=== PATIENT | female | born 1955 | race Caucasian/White ===

== ENCOUNTER 2020-03-29 11:03 | Inpatient (IN) | payer MEDICARE, BC ==
[~2020-03-29] VITALS: Ht 172.7 cm; Wt 77.1 kg
--- NOTE | 2020-03-29 11:07 | NUR ---
[id number], c/o left ankle pain s/p slipped and fall, 10/10 pain scale. On room air, breathing evenly and unlabored. connected to the monitor and pulse ox. kept comfortable, will continue to monitor accordingly.
[2020-03-29] MEDS ORDERED: HYDROCODONE/APAP 10/325MG 1 EA TABLET ONE (11:14)
--- NOTE | 2020-03-29 11:17 | NUR ---
ronna at bedside for x-ray
[2020-03-29] MEDS ORDERED: HYDROCODONE/APAP 10/325MG 1 EA TABLET PO ONE (11:30)
--- NOTE | 2020-03-29 12:00 | NUR ---
[facility]THO PAGED ITS RUPAL
--- NOTE | 2020-03-29 12:03 | NUR ---
MOVE SHEET SUBMITTED TO ADMITTING AND CALLED FOR MS BED WITH RO [id number]
--- NOTE | 2020-03-29 12:19 | NUR ---
EMT AT BEDSIDE FOR EKG
[2020-03-29] MEDS ORDERED: IV NS 0.9% 500 ML BAG IV ONE (12:30)
--- NOTE | 2020-03-29 12:32 | NUR ---
CALLED [facility] 2ND TIME.
--- NOTE | 2020-03-29 12:47 | NUR ---
ROOM ASSIGNMENT: 109 MED SURG
[2020-03-29 12:49] LABS: BASOPHILS % (AUTO) 0.3 % (0.0-2.0); EOSINOPHILS % (AUTO) 0.2 % (0.0-6.0); HEMATOCRIT 46 % (33-45); HEMOGLOBIN 15.4 g/dL (11.5-14.8); LYMPHOCYTES # (AUTO) 1.5 /CMM (0.8-4.8); LYMPHOCYTES % (AUTO) 15.8 % (20.0-44.0); MEAN CORPUSCULAR HGB CONC 33 g/dl (31.0-36.0); MEAN CORPUSCULAR VOLUME 91 fL (82-100); MONOCYTES # (AUTO) 0.6 /CMM (0.1-1.30); MONOCYTES % (AUTO) 6.2 % (2.0-12.0); NEUTROPHILS # (AUTO) 7.4 /CMM (1.8-8.9); NEUTROPHILS % (AUTO) 77.5 % (43.0-81.0); PLATELET COUNT (AUTO) 264 /CMM (150-450); WHITE BLOOD COUNT (AUTO) 9.5 K/uL (4.3-11.0)
[2020-03-29 12:57] LABS: CALCIUM, SERUM 9.2 mg/dL (8.5-10.1); CREATININE 1.2 mg/dL (0.6-1.3); POTASSIUM 3.4 mmol/L (3.5-5.1)
[2020-03-29] MEDS ORDERED: MAG HYDROX/AL HYDROX/SIMETH 30 ML UDC PO PRN (13:00)
[2020-03-29] MEDS ORDERED: ACETAMINOPHEN 325 MG TABLET PO PRN (13:00)
[2020-03-29] MEDS ORDERED: Z GUARD REMEDY 2 OZ OINT TP PRN (13:00)
[2020-03-29] MEDS ORDERED: MAGNESIUM HYDROXIDE 30 ML UDC PO PRN (13:00)
[2020-03-29] MEDS ORDERED: ESTR42.53 VG (13:13)
[2020-03-29] MEDS ORDERED: ESTR1PAT TP (13:13)
--- NOTE | 2020-03-29 14:35 | NUR ---
XRAY IMAGING SENT TO [facility]
--- NOTE | 2020-03-29 15:07 | NUR ---
Nick palmer in [facility] - 03/29/20 at 1507 by DOUG Patient discharged to home in stable condition. Written and verbal after care instructions given. Patient verbalizes understanding of instruction.
--- NOTE | 2020-03-29 15:07 | NUR ---
RECEIVED PT FROM ER IN [facility]. PT AWAKE, ALERT AND ORIENTED X 4, ON ROOM AIR, SATURATING WELL, RESPIRATIONS EVEN AND UNLABORED, NO SIGNS OF RESPIRATORY DISTRESS NOTED. IV SITE ON RIGHT AC G18 INTACT, PATENT, WITH SALINE LOCK IN PLACE. HEAD TO TOE ASSESSMENT COMPLETE, SKIN INTACT. LEFT FOOT WITH KELLY BANDAGE WRAPPED. PT REPORTS 10/10 PAIN IN HER LEFT LEG. PT STATES SHE CAME TO THE ER DUE TO A SLIP AND FALL DURING A HIKE. ALL BELONGINGS ACCOUNTED FOR. BED IN LOW POSITION, LOCKED, CALL LIGHT WITHIN REACH. INTRODUCED SELF TO PT AND DISCUSSED PLAN OF CARE.
--- NOTE | 2020-03-29 15:07 | NUR ---
wheeled patient via gurney accompanied by RN adn emt in no distress, RN at bedside to assume care.
[2020-03-29 16:00] VITALS: BP 121/56
[2020-03-29] MEDS: IV NS 0.9% 1,000 ML IV PRN (16:21)
[2020-03-29] MEDS: HYDROCODONE/APAP 5/325MG 1 EACH TABLET PO PRN ×2 (16:26→20:03)
[2020-03-29] MEDS: ONDANSETRON HCL/PF 4 MG/2 ML VIAL IVP PRN ×2 (16:26→23:07)
[2020-03-29] MEDS ORDERED: ESTRADIOL TD SCH (17:00)
--- NOTE | 2020-03-29 18:34 | NUR ---
PT REFUSED TO SIGN CONSENT FOR ANESTHESIA, BLOOD TRANSFUSION, CONSENT FOR SURGERY WILL ENDORSE TO NOC SHIFT NURSE
[2020-03-29] MEDS ORDERED: KETOROLAC TROMETHAMINE INJ 30 MG/ML VIAL IM PRN (19:30)
[2020-03-29 20:00] VITALS: BP 142/67
--- NOTE | 2020-03-29 20:15 | NUR ---
MS RN NOTES PT IS ANXIOUS ABOUT THE SURGERY FOR ORIF TOMORROW. SAYS DOESN'T KNOW WHO IS HER SURGEON IS AND WANTS DR DOUGHERTY TO OPERATE ON HER. PT EDUCATION DONE ABOUT THE SURGERY AND THE STAFF OPERATING ON HER BASED ON HER CHART. C/O OF 10/10 PAIN ON HER L ANKLE. PAIN CONTROLLING MEASURES IN PLACE WILL CONT TO MONITOR
[2020-03-29] MEDS: MORPHINE SULFATE INJ 2 MG/ML DISP.SYRIN IV PRN (23:08)
[2020-03-30] VITALS (7 sets, daily range): BP systolic 122–142; BP diastolic 65–74
[2020-03-30] MEDS: MORPHINE SULFATE INJ 2 MG/ML DISP.SYRIN IV PRN ×2 (03:48→08:50)
[2020-03-30] MEDS: IV NS 0.9% 1,000 ML IV PRN ×2 (05:48→21:57)
[2020-03-30 06:16] LABS: BASOPHILS % (AUTO) 0.3 % (0.0-2.0); EOSINOPHILS % (AUTO) 0.4 % (0.0-6.0); HEMATOCRIT 39 % (33-45); HEMOGLOBIN 12.9 g/dL (11.5-14.8); LYMPHOCYTES # (AUTO) 1.6 /CMM (0.8-4.8); LYMPHOCYTES % (AUTO) 28.5 % (20.0-44.0); MEAN CORPUSCULAR HGB CONC 33 g/dl (31.0-36.0); MEAN CORPUSCULAR VOLUME 90 fL (82-100); MONOCYTES # (AUTO) 0.6 /CMM (0.1-1.30); MONOCYTES % (AUTO) 10.6 % (2.0-12.0); NEUTROPHILS # (AUTO) 3.5 /CMM (1.8-8.9); NEUTROPHILS % (AUTO) 60.2 % (43.0-81.0); PLATELET COUNT (AUTO) 225 /CMM (150-450); RED BLOOD CELL COUNT(AUTO) 4.35 MIL/uL (4.0-5.2); WHITE BLOOD COUNT (AUTO) 5.7 K/uL (4.3-11.0)
[2020-03-30 06:48] LABS: CALCIUM, SERUM 8.3 mg/dL (8.5-10.1); CREATININE 0.9 mg/dL (0.6-1.3); MAGNESIUM 2.2 mg/dL (1.8-2.4); PHOSPHORUS 3.5 mg/dL (2.5-4.9); POTASSIUM 3.9 mmol/L (3.5-5.1)
--- NOTE | 2020-03-30 07:55 | NUR ---
ms rn received on bed, awake,alert,oriented x4,not in any form of distress, respirations even and unlabored,no sob noted, patient has fractured left ankle w/ immibilizer on, will have surgery today,all needs attended.
[2020-03-30] MEDS: ONDANSETRON HCL/PF 4 MG/2 ML VIAL IVP PRN ×2 (09:03→17:04)
--- NOTE | 2020-03-30 09:42 | NUR ---
ms mcdowell npo at this time for surgery at 1200.
[2020-03-30] MEDS ORDERED: BUPIVACAINE 0.5 % PF 150 MG/30 ML VIAL ONE (11:27)
[2020-03-30] MEDS ORDERED: BACITRACIN 50000 UNITS/VIAL ONE (11:28)
--- NOTE | 2020-03-30 11:30 | NUR ---
ms trn patient went down for surgery ORIF of left ankle.
[2020-03-30] MEDS ORDERED: MIDAZOLAM HCL 2 MG/2ML VIAL ONE (11:48)
[2020-03-30] MEDS ORDERED: FENTANYL PF 250MCG/5ML AMPUL ONE ×2 (11:49)
[2020-03-30] MEDS ORDERED: HYDROMORPHONE INJ 2 MG/ML DISP.SYRIN ONE (11:49)
[2020-03-30] MEDS ORDERED: FAMOTIDINE/PF INJ 20 MG/2 ML VIAL IV ONE (11:50)
[2020-03-30] MEDS ORDERED: ROCURONIUM BROMIDE 50 MG/5 ML ONE (11:50)
[2020-03-30] MEDS ORDERED: CEFAZOLIN 2 GM in IV D5W 100 ML IV SCH (13:00)
[2020-03-30] MEDS ORDERED: CEFAZOLIN 1 GM VIAL IM SCH (13:00)
--- NOTE | 2020-03-30 16:00 | NUR ---
ms rn received patient from nurse, patient is awake,alert,oriented x4,left ankle surgery site, covered w/ dressing ,clean and dry, immobilizer on, simons catheter tyo gravity w/ yellowish urine output, denies pain at this time,all needs attended.
--- NOTE | 2020-03-30 18:00 | NUR ---
ms july called Deirdre NUÑEZ of pt for update.
--- NOTE | 2020-03-30 18:24 | NUR ---
ms rn on bed, no distress noted, ordered food for dinner, sleeping at this time.
--- NOTE | 2020-03-30 19:30 | NUR ---
RN OPENING NOTES RECEIVED PT ON BED AWAKE AND WATCHING TV A/OX4, ON O2 2L VIA NC SPO2 100% TOLERATING WELL, WITH IV ON RAC# 18 AND RHAND #20 WITH ONGOING NS@ 75ML/HR INFUSING WELL, LEFT FOOT SPLINT BOOT IS NOTED, CHECKED FOR PERIPHERAL CIRCULATION AND ASK PT TO WIGGLE HER TOE,ON DROPLET ISOLATION TO R/O COVID SAFETY MEASURE MAINTAINED WILL CONT TO MONITOR
[2020-03-30] MEDS: CEFAZOLIN 2 GM in IV D5W 100 ML IV SCH (20:30)
[2020-03-30] MEDS: HYDROCODONE/APAP 5/325MG 1 EACH TABLET PO PRN (20:30)
[2020-03-31] VITALS: BP 140/76
[2020-03-31] MEDS: CEFAZOLIN 2 GM in IV D5W 100 ML IV SCH (05:16)
[2020-03-31 06:29] LABS: BASOPHILS % (AUTO) 0.1 % (0.0-2.0); HEMATOCRIT 39 % (33-45); HEMOGLOBIN 12.9 g/dL (11.5-14.8); LYMPHOCYTES % (AUTO) 11.8 % (20.0-44.0); MEAN CORPUSCULAR HGB CONC 33 g/dl (31.0-36.0); MEAN CORPUSCULAR VOLUME 90 fL (82-100); MONOCYTES # (AUTO) 0.9 /CMM (0.1-1.30); MONOCYTES % (AUTO) 10.7 % (2.0-12.0); NEUTROPHILS # (AUTO) 6.6 /CMM (1.8-8.9); NEUTROPHILS % (AUTO) 77.4 % (43.0-81.0); PLATELET COUNT (AUTO) 208 /CMM (150-450); RED BLOOD CELL COUNT(AUTO) 4.33 MIL/uL (4.0-5.2); WHITE BLOOD COUNT (AUTO) 8.5 K/uL (4.3-11.0)
--- NOTE | 2020-03-31 06:56 | NUR ---
RN CLOSING NOTES PT ON BED ASLEEP EASY TO AWAKE NO SIGN AND SYMPTOMS OF RESPIRATORY DISTRESS SPO2 >95% NO SIGNIIFACANT CHANGES ON CONDITION NOTED, ALL NEEDS ATTENDED, WILL ENDORSED TO AM SHIFT NURSE
[2020-03-31 07:00] LABS: CALCIUM, SERUM 8.4 mg/dL (8.5-10.1); CREATININE 0.9 mg/dL (0.6-1.3); MAGNESIUM 2.4 mg/dL (1.8-2.4); POTASSIUM 3.7 mmol/L (3.5-5.1)
[2020-03-31 08:00] VITALS: BP 124/67
[2020-03-31] MEDS ORDERED: ESTRADIOL VG SCH (09:00)
[2020-03-31] MEDS ORDERED: ESTRADIOL TD SCH (09:00)
--- NOTE | 2020-03-31 09:29 | NUR ---
Patient is asking for physical therapy, has concerns about Folley Cath and constipation, will notify MD
[2020-03-31] MEDS ORDERED: ESTRADIOL TP SCH (09:30)
--- NOTE | 2020-03-31 09:30 | NUR ---
Patient has her own medication in room Estradiol patch 0.05mg/day, she self administer this patch at 0840, pharmacy notified
[2020-03-31] MEDS ORDERED: TDAP [DIPH/PERTUSSIS/TET] 0.5 ML VIAL IM ONE (10:30)
[2020-03-31] MEDS ORDERED: FEE PK DOSING 1 MIN EA MC ONE (11:44)
[2020-03-31] MEDS ORDERED: PIPERACILLIN /TAZOBACTAM 3.375 G in IV D5W 50 ML IV SCH (12:00)
[2020-03-31] MEDS ORDERED: POLYETHYLENE GLYCOL 3350 17 GM POWD.PACK PO PRN (13:00)
[2020-03-31] MEDS ORDERED: VANCOMYCIN 1 GM in IV D5W 250 ML IV SCH (13:00)
[2020-03-31] MEDS ORDERED: DOCUSATE SODIUM 100 MG CAPSULE PO SCH (13:00)
[2020-03-31] MEDS ORDERED: ENOXAPARIN SODIUM 40 MG/0.4 ML DISP.SYRIN SQ SCH (14:00)
--- NOTE | 2020-03-31 14:03 | NUR ---
removed Muller cath per Dr conklin
--- NOTE | 2020-03-31 14:35 | NUR ---
cannot locate pt's Lovenox in [facility]/ omni cell, pharmacy notified
[2020-03-31] MEDS ORDERED: DOXY100C2 PO (15:23)
[2020-03-31] MEDS ORDERED: LEVO500T90 PO (15:23)
[2020-03-31 16:00] VITALS: BP 132/67
--- NOTE | 2020-03-31 16:00 | NUR ---
Patient is crying in the room, saying she has burning pain in her L foot due reposition. MD Barnett notified
--- NOTE | 2020-03-31 17:25 | NUR ---
CUSTOMER MARKETING INTERN NOTE PATIENT WAS DISCHARGED FROM [facility], ROOM 110, DISCHARGED INSTRUCTION GIVEN, PATIENT UNDERSTOOD, IV LINES REMOVED, NO S/SX OF BLEEDING.ESCORTED TO THE LOBBY VIA WHEELCHAIR WITH BELONGINGS
== END 2020-03-31 19:38 | disposition home health service (06) | DRG 494 ==
LOC: ER 11:05 → MEDSG1 12:50
PROVIDERS: ADMIT Internal Medicine; ATTEND Student in an Organized Health Care Education/Training Program
PROC: 0QSK04Z Reposition Left Fibula with Internal Fixation Device, Open Approach (ICD-10-PCS; principal; 2020-03-30)
PROC: 0QSH04Z Reposition Left Tibia with Internal Fixation Device, Open Approach (ICD-10-PCS; 2020-03-30)
DX: S82.842A Displaced bimalleolar fracture of left lower leg, initial encounter for closed fracture (principal); W01.0XXA Fall on same level from slipping, tripping and stumbling without subsequent striking against object, initial encounter; Y92.89 Other specified places as the place of occurrence of the external cause; E87.6 Hypokalemia; S82.62XA Displaced fracture of lateral malleolus of left fibula, initial encounter for closed fracture; Y93.01 Activity, walking, marching and hiking; Y92.481 Parking lot as the place of occurrence of the external cause; Z90.710 Acquired absence of both cervix and uterus; Z83.3 Family history of diabetes mellitus; R79.89 Other specified abnormal findings of blood chemistry; I70.0 Atherosclerosis of aorta; Z80.9 Family history of malignant neoplasm, unspecified; Z79.890 Hormone replacement therapy; S93.05XA Dislocation of left ankle joint, initial encounter
CPT/HCPCS: 36415; 71045-TC; 73600-TC; 73610-TC; 73700-TC; 80048-TC; 83735-TC; 84100-TC; 85025-TC; 85730-TC; 87081-TC; 90715; 93307-TC; 97116-TC; 97530-TC; C1713; C1769; G0378; J0690; J1100; J1170; J1885; J2250; J2270; J2405; J2543; J2704; J2710; J2765; J3010; J3370; J3490; J7030; J7060; U0003-CS

== ENCOUNTER 2020-05-26 13:28 | Outpatient (CLI) | payer MEDICARE, BC ==
[~2020-05-26 13:28] MED LIST: DOXY100C2 PO; ESTR1PAT TP; ESTR42.53 VG; LEVO500T90 PO
[2020-05-26] MEDS ORDERED: MUPIROCIN 2% CREAM 15 GM TUBE TP ONE (14:32)
== END 2020-05-26 23:59 | disposition home or self-care (01) ==
LOC: WOU 13:28
PROVIDERS: ATTEND Podiatrist Foot & Ankle Surgery
DX: T81.89XA Other complications of procedures, not elsewhere classified, initial encounter (principal); R60.0 Localized edema
CPT/HCPCS: 11042

== ENCOUNTER 2020-06-02 15:10 | Outpatient (CLI) | payer MEDICARE, BC ==
[2020-06-02] MEDS ORDERED: MUPIROCIN 2% CREAM 15 GM TUBE TP ONE (16:17)
== END 2020-06-02 23:59 | disposition home or self-care (01) ==
LOC: WOU 15:10
PROVIDERS: ATTEND Podiatrist Foot & Ankle Surgery
DX: T81.89XA Other complications of procedures, not elsewhere classified, initial encounter (principal); R60.0 Localized edema
CPT/HCPCS: 11042

== ENCOUNTER 2020-06-09 15:25 | Outpatient (CLI) | payer MEDICARE, BC | END 2020-06-09 23:59 | disposition home or self-care (01) | LOC: WOU 15:25 | PROVIDERS: ATTEND Podiatrist Foot & Ankle Surgery | DX: T81.89XD Other complications of procedures, not elsewhere classified, subsequent encounter (principal); R60.0 Localized edema | CPT/HCPCS: G0463 ==

== ENCOUNTER 2020-07-07 15:35 | Outpatient (CLI) | payer MEDICARE, BC | END 2020-07-07 23:59 | disposition home or self-care (01) | LOC: WOU 15:35 | PROVIDERS: ATTEND Podiatrist Foot & Ankle Surgery | DX: L90.5 Scar conditions and fibrosis of skin (principal); R60.0 Localized edema; S91.002D Unspecified open wound, left ankle, subsequent encounter; S92.002D Unspecified fracture of left calcaneus, subsequent encounter for fracture with routine healing; X58.XXXD Exposure to other specified factors, subsequent encounter | CPT/HCPCS: G0463 ==